=== PATIENT | female | born 1945 | race Caucasian/White ===

== ENCOUNTER 2016-12-27 08:44 | Outpatient (CLI) | payer OTHER | END 2016-12-27 18:30 | disposition home or self-care (01) | LOC: SMA 08:44 | PROVIDERS: ATTEND General Practice | DX: Z12.31 Encounter for screening mammogram for malignant neoplasm of breast (principal) | CPT/HCPCS: 77067; G0202 ==

== ENCOUNTER 2018-08-16 01:28 | Emergency (ER) | payer OTHER ==
[~2018-08-16] VITALS: Ht 157.5 cm; Wt 61.2 kg
[2018-08-16 01:38] VITALS: BP_SYST 152
--- NOTE | 2018-08-16 01:38 | NUR ---
Patient to ER bed 8 to gown for evaluation. Side rails up. Report given to Esmer ORTIZ and Shaina ORTIZ.
--- NOTE | 2018-08-16 01:45 | NUR ---
Patient is coming in with right sided pain which ocurred earlier tonight. Patient says she tried a hot shower however, it did not help. Patient denies n/v/d/f. Patient states she has had history of uti's. Patient explains that she does experience some burning when urinating. No other injuries/complaints noted. Will cont. to monitor.
--- NOTE | 2018-08-16 01:50 | NUR ---
ER Dr. Gómez at bedside examining patient.
[2018-08-16 02:23] LABS: BASOPHILS # (AUTO) 0.1 K/uL (0.0-0.2); BASOPHILS % (AUTO) 1.1 % (0.0-2.0); EOSINOPHILS # (AUTO) 0.1 K/uL (0.0-0.4); EOSINOPHILS % (AUTO) 1.3 % (0.0-4.0); HEMATOCRIT 42.8 % (36-48); HEMOGLOBIN 13.9 g/dL (12.0-16.0); LYMPHOCYTES # (AUTO) 2.1 K/uL (1.0-5.5); LYMPHOCYTES % (AUTO) 19.2 % (20.5-51.5); MEAN CORPUSCULAR HEMOGLOBIN 28 pg (27-31); MEAN CORPUSCULAR HGB CONC 32 % (32-36); MEAN CORPUSCULAR VOLUME 87 fL (79.0-98.0); MONOCYTES # (AUTO) 0.4 K/uL (0.0-1.0); NEUTROPHILS # (AUTO) 8.4 K/uL (1.8-7.7); NEUTROPHILS % (AUTO) 74.4 % (40.0-70.0); PLATELET COUNT (AUTO) 275 K/uL (130-430); RED BLOOD CELL COUNT(AUTO) 4.91 MIL/uL (4.2-6.2); RED CELL DISTRIBUTION WIDTH 13.1 % (9.0-15.0); WHITE BLOOD COUNT (AUTO) 11.1 K/uL (4.8-10.8)
[2018-08-16 02:35] LABS: BILIRUBIN,URINE NEGATIVE (NEGATIVE); BLOOD, URINE NEGATIVE (NEGATIVE); CLARITY/URINE CLEAR (CLEAR); COLOR,URINE YELLOW (YELLOW); GLUCOSE,URINE NEGATIVE (NEGATIVE); KETONES,URINE NEGATIVE (NEGATIVE); LEUKOCYTE ESTERASE ,URINE 1+ (NEGATIVE); NITRITE, URINE POSITIVE (NEGATIVE); PH,URINE 8.5 (5.0-8.0); PROTEIN URINE TRACE (NEGATIVE); UROBILINOGEN,URINE 0.2 (0.2-1.0)
--- NOTE | 2018-08-16 02:41 | NUR ---
Patient is calmly resting in ER bed, no signs of distress noted at this time.
[2018-08-16 02:48] LABS: BACTERIA,URINE MANY /HPF (None Seen); RBC,URINE 0-3 /HPF (0-3)
--- NOTE | 2018-08-16 03:35 | NUR ---
Patient resting quietly, no acute changes to patient's condition noted.
[2018-08-16] MEDS ORDERED: LEVOFLOXACIN 500 MG TABLET PO ONE (04:00)
[2018-08-16 04:21] VITALS: BP_SYST 144
--- NOTE | 2018-08-16 04:21 | NUR ---
Patient given written and verbal discharge instructions and verbalizes understanding. ER MD discussed with patient the results and treatment provided. Patient in stable condition. ID arm band removed. Rx of cipro and reglan given. Patient educated on pain management and to follow up with PMD. Pain Scale 1/10. Patient states pain is tolerable. Opportunity for questions provided and answered.
[2018-08-17] MEDS ORDERED: METO-290 PO (05:23)
[2018-08-17] MEDS ORDERED: SIMV10TA2 PO (05:23)
[2018-08-17] MEDS ORDERED: NOR10 PO (05:23)
[2018-08-17] MEDS ORDERED: APIX2.5T PO (05:23)
[2018-08-17] MEDS ORDERED: LEVO25TA2 PO (05:23)
[2018-08-17] MEDS ORDERED: PRO40 PO (05:23)
== END 2018-08-16 04:21 | disposition home or self-care (01) ==
LOC: SED 01:28
DX: N39.0 Urinary tract infection, site not specified (principal); R10.9 Unspecified abdominal pain; I10 Essential (primary) hypertension
CPT/HCPCS: 36415; 71045; 74021; 81000-TC; 85025; 87086; 87186-TC; 99285

== ENCOUNTER 2018-08-17 03:34 | Inpatient (IN) | payer OTHER ==
[~2018-08-17] VITALS: Ht 157.5 cm; Wt 64.0 kg
[2018-08-17] VITALS (7 sets, daily range): BP systolic 135–148
[2018-08-17] MEDS ORDERED: NACL 0.9% 1,000 ML IV ONE (03:43)
[2018-08-17] MEDS ORDERED: KETOROLAC TROMETHAMINE 30 MG VIAL IVP ONE (03:45)
[2018-08-17] MEDS ORDERED: ONDANSETRON HCL 4 MG/2 ML VIAL IVP ONE (04:00)
[2018-08-17 04:32] LABS: BASOPHILS # (AUTO) 0.1 K/uL (0.0-0.2); BASOPHILS % (AUTO) 1.1 % (0.0-2.0); EOSINOPHILS % (AUTO) 0.2 % (0.0-4.0); HEMATOCRIT 44.9 % (36-48); HEMOGLOBIN 14.8 g/dL (12.0-16.0); LYMPHOCYTES # (AUTO) 1.4 K/uL (1.0-5.5); LYMPHOCYTES % (AUTO) 11.6 % (20.5-51.5); MEAN CORPUSCULAR HEMOGLOBIN 29 pg (27-31); MEAN CORPUSCULAR HGB CONC 33 % (32-36); MEAN CORPUSCULAR VOLUME 87 fL (79.0-98.0); MONOCYTES # (AUTO) 0.3 K/uL (0.0-1.0); MONOCYTES % (AUTO) 2.8 % (1.7-9.3); NEUTROPHILS # (AUTO) 10.7 K/uL (1.8-7.7); NEUTROPHILS % (AUTO) 84.3 % (40.0-70.0); PLATELET COUNT (AUTO) 271 K/uL (130-430); RED BLOOD CELL COUNT(AUTO) 5.18 MIL/uL (4.2-6.2); RED CELL DISTRIBUTION WIDTH 12.7 % (9.0-15.0); WHITE BLOOD COUNT (AUTO) 12.5 K/uL (4.8-10.8)
[2018-08-17 04:33] LABS: ANION GAP 10 (5-15); CALCIUM 9.2 mg/dL (8.4-11.0); CHLORIDE 100 mmol/L (98-107); CREATININE 0.77 mg/dL (0.55-1.30); GLUCOSE 197 mg/dL (70-99); POTASSIUM 3.1 mmol/L (3.5-5.1); SODIUM SERUM 137 mmol/L (136-145); UREA NITROGEN, BLOOD 14 mg/dL (8-21)
[2018-08-17 04:38] LABS: ALANINE AMINOTRANSFERASE 17 U/L (12-78); ALBUMIN 3.5 g/dL (3.4-4.8); ASPARTATE AMINOTRANSFERASE 11 U/L (10-37)
[2018-08-17] MEDS ORDERED: metroNIDAZOLE 500 mg/NS 100 ML IV ONE (05:00)
[2018-08-17] MEDS ORDERED: POTASSIUM CHLORIDE 10 MEQ TAB.PRT.SR PO ONE (05:00)
[2018-08-17] MEDS ORDERED: KCL 40 mEq in D5W 1000 mL 1,000 ML IV ONE (05:00)
[2018-08-17] MEDS ORDERED: NOR10 PO (05:23)
[2018-08-17] MEDS ORDERED: APIX2.5T PO (05:23)
[2018-08-17] MEDS ORDERED: METO-290 PO (05:23)
[2018-08-17] MEDS ORDERED: LEVO25TA2 PO (05:23)
[2018-08-17] MEDS ORDERED: PRO40 PO (05:23)
[2018-08-17] MEDS ORDERED: SIMV10TA2 PO (05:23)
[2018-08-17] MEDS ORDERED: D5/0.45 NS 1,000 ML IV SCH (05:45)
[2018-08-17] MEDS ORDERED: MORPHINE 2 MG/ML INJ. SYRINGE IVP ONE (06:00)
[2018-08-17] MEDS: ACETAMINOPHEN 325 MG TABLET PO PRN ×2 (08:08→21:08)
[2018-08-17] MEDS: NACL 0.9% 1,000 ML IV SCH ×2 (08:09→17:33)
[2018-08-17] MEDS ORDERED: PANTOPRAZOLE SODIUM 40 MG/VIAL (PROTONIX) IVP SCH (09:00)
[2018-08-17] MEDS ORDERED: LACTULOSE 20 GM/30 ML UDC PO ONE (09:30)
[2018-08-17 10:10] LABS: INR 1.1 (0.8-1.2); PROTHROMBIN TIME 11.1 SECS (9.5-12.5)
[2018-08-17] MEDS: MORPHINE 2 MG/ML INJ. SYRINGE IVP PRN ×5 (10:18→23:15)
[2018-08-17 11:26] LABS: BILIRUBIN,URINE 1+ (NEGATIVE); BLOOD, URINE NEGATIVE (NEGATIVE); CLARITY/URINE CLEAR (CLEAR); COLOR,URINE YELLOW (YELLOW); GLUCOSE,URINE NEGATIVE (NEGATIVE); KETONES,URINE NEGATIVE (NEGATIVE); LEUKOCYTE ESTERASE ,URINE NEGATIVE (NEGATIVE); NITRITE, URINE NEGATIVE (NEGATIVE); PROTEIN URINE 2+ (NEGATIVE)
[2018-08-17 11:43] LABS: BACTERIA,URINE FEW /HPF (None Seen); RBC,URINE 0-3 /HPF (0-3); WBC,URINE 0-3 /HPF (0-3)
[2018-08-17 11:44] LABS: MUCUS,URINE 2+ /LPF (None Seen); YEAST,URINE None Seen /HPF (None Seen)
[2018-08-17] MEDS: AMPICILLIN SODIUM/SULBACTAM NA 3 GM in NS 100 ML IV SCH ×3 (12:00→23:11)
[2018-08-17] MEDS ORDERED: IPRATROPIUM/ALBUTEROL SULFATE 3 ML AMPUL.NEB (DUONEB) INH PRN (14:30)
[2018-08-17] MEDS ORDERED: IOHEXOL 350 mgI/mL, 150 ML INFUS..BTL IV ONE (16:18)
[2018-08-17] MEDS ORDERED: methylPREDNISolone SOD SUCC 40 MG/ML VIAL IVP ONE (17:30)
[2018-08-17] MEDS: IPRATROPIUM BROM 0.5 MG/2.5 ML VIAL.NEB (ATROVENT) INH SCH (19:12)
[2018-08-17] MEDS: ALBUTEROL SULFATE 0.083% 2.5 MG/3 ML VIAL.NEB INH SCH (19:12)
[2018-08-17] MEDS: methylPREDNISolone SOD SUCC 40 MG/ML VIAL IVP SCH (21:10)
[2018-08-18] MEDS: IPRATROPIUM BROM 0.5 MG/2.5 ML VIAL.NEB (ATROVENT) INH SCH ×4 (00:06→19:46)
[2018-08-18] MEDS: ALBUTEROL SULFATE 0.083% 2.5 MG/3 ML VIAL.NEB INH SCH ×4 (00:06→19:46)
[2018-08-18 00:22] VITALS: BP_SYST 122
[2018-08-18] MEDS: MORPHINE 2 MG/ML INJ. SYRINGE IVP PRN ×4 (04:30→23:31)
[2018-08-18] MEDS: NACL 0.9% 1,000 ML IV SCH (04:35)
[2018-08-18] MEDS: AMPICILLIN SODIUM/SULBACTAM NA 3 GM in NS 100 ML IV SCH (05:55)
[2018-08-18] MEDS: methylPREDNISolone SOD SUCC 40 MG/ML VIAL IVP SCH ×2 (05:55→21:44)
[2018-08-18] MEDS: LEVOTHYROXINE SODIUM 0.025 MG TABLET PO SCH (06:17)
[2018-08-18 07:45] LABS: ALANINE AMINOTRANSFERASE 19 U/L (12-78); ANION GAP 10 (5-15); ASPARTATE AMINOTRANSFERASE 11 U/L (10-37); CALCIUM 9.3 mg/dL (8.4-11.0); CHLORIDE 107 mmol/L (98-107); CREATININE 0.73 mg/dL (0.55-1.30); GLUCOSE 159 mg/dL (70-99); POTASSIUM 4.3 mmol/L (3.5-5.1); SODIUM SERUM 144 mmol/L (136-145); TOTAL BILIRUBIN 0.5 mg/dL (0.0-1.0); UREA NITROGEN, BLOOD 13 mg/dL (8-21)
[2018-08-18 07:58] LABS: BASOPHILS % (AUTO) 0.4 % (0.0-2.0); HEMATOCRIT 41.5 % (36-48); HEMOGLOBIN 13.4 g/dL (12.0-16.0); LYMPHOCYTES # (AUTO) 1.1 K/uL (1.0-5.5); LYMPHOCYTES % (AUTO) 9.6 % (20.5-51.5); MEAN CORPUSCULAR HEMOGLOBIN 29 pg (27-31); MEAN CORPUSCULAR HGB CONC 32 % (32-36); MEAN CORPUSCULAR VOLUME 88 fL (79.0-98.0); MONOCYTES # (AUTO) 0.2 K/uL (0.0-1.0); MONOCYTES % (AUTO) 1.6 % (1.7-9.3); NEUTROPHILS # (AUTO) 10.5 K/uL (1.8-7.7); NEUTROPHILS % (AUTO) 88.4 % (40.0-70.0); PLATELET COUNT (AUTO) 227 K/uL (130-430); RED CELL DISTRIBUTION WIDTH 13.3 % (9.0-15.0); WHITE BLOOD COUNT (AUTO) 11.8 K/uL (4.8-10.8)
[2018-08-18 08:40] VITALS: BP_SYST 114
[2018-08-18] MEDS: PANTOPRAZOLE SODIUM 40 MG TAB PO SCH (09:55)
[2018-08-18] MEDS: METOCLOPRAMIDE HCL 10 MG TABLET PO SCH (09:55)
[2018-08-18] MEDS: SIMVASTATIN 10 MG TABLET PO SCH (09:55)
[2018-08-18] MEDS: amLODIPine BESYLATE 10 MG TABLET PO SCH (09:56)
[2018-08-18 11:29] VITALS: BP_SYST 143
[2018-08-18] MEDS ORDERED: ENOXAPARIN SODIUM 40 MG/0.4 ML SYRINGE SUBCUT ONE (12:00)
[2018-08-18] MEDS: metroNIDAZOLE 500 mg/NS 100 ML IV SCH ×3 (12:27→21:46)
[2018-08-18] MEDS: D5/0.45 NS 1,000 ML IV SCH ×2 (12:31→23:36)
[2018-08-18] MEDS: PIPERACILLIN/TAZO 4.5GM/DEX-IS 100 ML IV SCH ×2 (15:29→21:44)
[2018-08-18 15:41] VITALS: BP_SYST 149
[2018-08-18 19:52] VITALS: BP_SYST 147
[2018-08-19] VITALS (11 sets, daily range): BP systolic 106–159
[2018-08-19] MEDS: ALBUTEROL SULFATE 0.083% 2.5 MG/3 ML VIAL.NEB INH SCH ×4 (00:50→19:36)
[2018-08-19] MEDS: IPRATROPIUM BROM 0.5 MG/2.5 ML VIAL.NEB (ATROVENT) INH SCH ×4 (00:50→19:36)
[2018-08-19] MEDS: metroNIDAZOLE 500 mg/NS 100 ML IV SCH ×2 (05:44→17:39)
[2018-08-19] MEDS: LEVOTHYROXINE SODIUM 0.025 MG TABLET PO SCH (06:34)
[2018-08-19] MEDS: PIPERACILLIN/TAZO 4.5GM/DEX-IS 100 ML IV SCH ×3 (06:35→21:08)
[2018-08-19 07:18] LABS: ANION GAP 10 (5-15); CALCIUM 8.9 mg/dL (8.4-11.0); CHLORIDE 105 mmol/L (98-107); CREATININE 0.66 mg/dL (0.55-1.30); GLUCOSE 214 mg/dL (70-99); SODIUM SERUM 141 mmol/L (136-145); UREA NITROGEN, BLOOD 11 mg/dL (8-21)
[2018-08-19 07:25] LABS: ALANINE AMINOTRANSFERASE 15 U/L (12-78); ALBUMIN 2.5 g/dL (3.4-4.8); ASPARTATE AMINOTRANSFERASE 9 U/L (10-37); TOTAL BILIRUBIN 0.3 mg/dL (0.0-1.0)
[2018-08-19 07:41] LABS: BASOPHILS % (AUTO) 0.3 % (0.0-2.0); HEMATOCRIT 34.5 % (36-48); HEMOGLOBIN 11.5 g/dL (12.0-16.0); LYMPHOCYTES # (AUTO) 0.7 K/uL (1.0-5.5); LYMPHOCYTES % (AUTO) 6.5 % (20.5-51.5); MEAN CORPUSCULAR HEMOGLOBIN 29 pg (27-31); MEAN CORPUSCULAR HGB CONC 33 % (32-36); MEAN CORPUSCULAR VOLUME 87 fL (79.0-98.0); MONOCYTES # (AUTO) 0.3 K/uL (0.0-1.0); MONOCYTES % (AUTO) 2.3 % (1.7-9.3); NEUTROPHILS % (AUTO) 90.9 % (40.0-70.0); PLATELET COUNT (AUTO) 242 K/uL (130-430); RED BLOOD CELL COUNT(AUTO) 3.96 MIL/uL (4.2-6.2); RED CELL DISTRIBUTION WIDTH 13.3 % (9.0-15.0)
[2018-08-19 08:00] LABS: POTASSIUM 2.9 mmol/L (3.5-5.1)
[2018-08-19] MEDS ORDERED: POTASSIUM CHLORIDE 40 MEQ in NS 250 ML IV ONE (09:00)
[2018-08-19] MEDS: METOCLOPRAMIDE HCL 10 MG TABLET PO SCH (09:42)
[2018-08-19] MEDS: ENOXAPARIN SODIUM 40 MG/0.4 ML SYRINGE SUBCUT SCH (09:42)
[2018-08-19] MEDS: methylPREDNISolone SOD SUCC 40 MG/ML VIAL IVP SCH ×2 (09:42→21:01)
[2018-08-19] MEDS: PANTOPRAZOLE SODIUM 40 MG TAB PO SCH (09:42)
[2018-08-19] MEDS: SIMVASTATIN 10 MG TABLET PO SCH (09:42)
[2018-08-19] MEDS: MORPHINE 2 MG/ML INJ. SYRINGE IVP PRN ×2 (09:43→22:50)
[2018-08-19] MEDS: amLODIPine BESYLATE 10 MG TABLET PO SCH (09:44)
[2018-08-19] MEDS: D5/0.45 NS 1,000 ML IV SCH ×2 (12:00→21:07)
[2018-08-19] MEDS: BRIMONIDINE TARTRATE 0.2% 5 mL EYE DROPS OP SCH (21:00)
[2018-08-19] MEDS: TIMOLOL MALEATE 0.5% OPHTHALMIC DROPS 5 ML OP SCH (21:01)
[2018-08-20] VITALS (25 sets, daily range): BP systolic 103–168
[2018-08-20] MEDS: metroNIDAZOLE 500 mg/NS 100 ML IV SCH ×4 (00:13→21:03)
[2018-08-20] MEDS: IPRATROPIUM BROM 0.5 MG/2.5 ML VIAL.NEB (ATROVENT) INH SCH ×4 (01:00→19:35)
[2018-08-20] MEDS: ALBUTEROL SULFATE 0.083% 2.5 MG/3 ML VIAL.NEB INH SCH ×4 (01:00→19:35)
[2018-08-20] MEDS: PIPERACILLIN/TAZO 4.5GM/DEX-IS 100 ML IV SCH ×3 (06:02→21:03)
[2018-08-20] MEDS: LEVOTHYROXINE SODIUM 0.025 MG TABLET PO SCH (06:02)
[2018-08-20 06:21] LABS: ANION GAP 9 (5-15); CALCIUM 9.1 mg/dL (8.4-11.0); CHLORIDE 101 mmol/L (98-107); GLUCOSE 160 mg/dL (70-99); SODIUM SERUM 140 mmol/L (136-145); UREA NITROGEN, BLOOD 12 mg/dL (8-21)
[2018-08-20 06:30] LABS: ALANINE AMINOTRANSFERASE 13 U/L (12-78); ALBUMIN 2.7 g/dL (3.4-4.8); TOTAL BILIRUBIN 0.4 mg/dL (0.0-1.0)
[2018-08-20 06:36] LABS: ASPARTATE AMINOTRANSFERASE 14 U/L (10-37); LIPASE 82 U/L (73-393)
[2018-08-20 06:47] LABS: BASOPHILS # (AUTO) 0.1 K/uL (0.0-0.2); BASOPHILS % (AUTO) 0.6 % (0.0-2.0); HEMATOCRIT 39.3 % (36-48); HEMOGLOBIN 12.4 g/dL (12.0-16.0); LYMPHOCYTES # (AUTO) 1.2 K/uL (1.0-5.5); LYMPHOCYTES % (AUTO) 10.5 % (20.5-51.5); MEAN CORPUSCULAR HEMOGLOBIN 28 pg (27-31); MEAN CORPUSCULAR HGB CONC 32 % (32-36); MEAN CORPUSCULAR VOLUME 87 fL (79.0-98.0); MONOCYTES # (AUTO) 0.4 K/uL (0.0-1.0); MONOCYTES % (AUTO) 3.2 % (1.7-9.3); NEUTROPHILS # (AUTO) 9.6 K/uL (1.8-7.7); NEUTROPHILS % (AUTO) 85.7 % (40.0-70.0); PLATELET COUNT (AUTO) 324 K/uL (130-430); RED BLOOD CELL COUNT(AUTO) 4.51 MIL/uL (4.2-6.2); RED CELL DISTRIBUTION WIDTH 13.6 % (9.0-15.0); WHITE BLOOD COUNT (AUTO) 11.3 K/uL (4.8-10.8)
[2018-08-20] MEDS: ENOXAPARIN SODIUM 40 MG/0.4 ML SYRINGE SUBCUT SCH (08:17)
[2018-08-20] MEDS: SIMVASTATIN 10 MG TABLET PO SCH (08:18)
[2018-08-20] MEDS: BRIMONIDINE TARTRATE 0.2% 5 mL EYE DROPS OP SCH ×2 (08:18→21:02)
[2018-08-20] MEDS: METOCLOPRAMIDE HCL 10 MG TABLET PO SCH (08:18)
[2018-08-20] MEDS: PANTOPRAZOLE SODIUM 40 MG TAB PO SCH (08:18)
[2018-08-20] MEDS: amLODIPine BESYLATE 10 MG TABLET PO SCH (08:18)
[2018-08-20] MEDS: TIMOLOL MALEATE 0.5% OPHTHALMIC DROPS 5 ML OP SCH ×2 (08:19→21:03)
[2018-08-20] MEDS: methylPREDNISolone SOD SUCC 40 MG/ML VIAL IVP SCH (08:24)
[2018-08-20] MEDS ORDERED: *PPN PER PHARMACY XX PRN (10:00)
[2018-08-20] MEDS ORDERED: DEXTROSE 50% JECT 50 ML DISP.SYRIN IVP PRN (10:00)
[2018-08-20] MEDS ORDERED: POTASSIUM CHLORIDE 40 MEQ, LIDOCAINE JECT 2% PF 100 MG 50 MG in NS 250 ML IV ONE (10:00)
[2018-08-20 10:35] LABS: PHOSPHORUS 2.8 mg/dL (2.7-4.5)
[2018-08-20] MEDS ORDERED: COMMUNICATION ORDER XX ONE (11:15)
[2018-08-20] MEDS: MORPHINE 2 MG/ML INJ. SYRINGE IVP PRN ×2 (12:22→23:15)
[2018-08-20] MEDS: D5/0.45 NS 1,000 ML IV SCH (14:07)
[2018-08-20] MEDS: POTASSIUM CHLORIDE IV SCH ×9 (17:31)
[2018-08-20] MEDS: [UNRECOGNIZED DRUG - OTHER] IV SCH ×9 (17:31)
[2018-08-20] MEDS: TPN PERIPHERAL IV SCH ×9 (17:31)
[2018-08-20] MEDS: SODIUM CHLORIDE IV SCH ×9 (17:31)
[2018-08-20] MEDS: FAT EMULSIONS 250 ML IV SCH (17:32)
[2018-08-20] MEDS ORDERED: TPN PERIPHERAL 0.0001 ML, SODIUM ACETATE 40 MEQ, POTASSIUM CHLORIDE 20 MEQ, K PHOS 12 M... IV SCH ×9 (18:00)
[2018-08-20] MEDS: INSULIN REGULAR, HUMAN 100 UNITS/ML, 10 ML VIAL (novoLIN R) SUBCUT PRN (23:14)
[2018-08-21] VITALS (24 sets, daily range): BP systolic 108–169
[2018-08-21] MEDS: IPRATROPIUM BROM 0.5 MG/2.5 ML VIAL.NEB (ATROVENT) INH SCH ×4 (00:49→20:01)
[2018-08-21] MEDS: ALBUTEROL SULFATE 0.083% 2.5 MG/3 ML VIAL.NEB INH SCH ×4 (00:49→20:01)
[2018-08-21 05:15] LABS: ANION GAP 5 (5-15); CALCIUM 8.9 mg/dL (8.4-11.0); CHLORIDE 104 mmol/L (98-107); CREATININE 0.76 mg/dL (0.55-1.30); GLUCOSE 138 mg/dL (70-99); PHOSPHORUS 3.4 mg/dL (2.7-4.5); POTASSIUM 3.7 mmol/L (3.5-5.1); SODIUM SERUM 138 mmol/L (136-145); UREA NITROGEN, BLOOD 20 mg/dL (8-21)
[2018-08-21 05:23] LABS: BASOPHILS # (AUTO) 0.2 K/uL (0.0-0.2); BASOPHILS % (AUTO) 1.6 % (0.0-2.0); EOSINOPHILS % (AUTO) 0.1 % (0.0-4.0); HEMATOCRIT 41.6 % (36-48); HEMOGLOBIN 13.1 g/dL (12.0-16.0); LYMPHOCYTES # (AUTO) 2.4 K/uL (1.0-5.5); LYMPHOCYTES % (AUTO) 21.8 % (20.5-51.5); MEAN CORPUSCULAR HEMOGLOBIN 28 pg (27-31); MEAN CORPUSCULAR HGB CONC 32 % (32-36); MEAN CORPUSCULAR VOLUME 88 fL (79.0-98.0); MONOCYTES # (AUTO) 0.8 K/uL (0.0-1.0); MONOCYTES % (AUTO) 7.3 % (1.7-9.3); NEUTROPHILS # (AUTO) 7.5 K/uL (1.8-7.7); NEUTROPHILS % (AUTO) 69.2 % (40.0-70.0); PLATELET COUNT (AUTO) 315 K/uL (130-430); RED BLOOD CELL COUNT(AUTO) 4.73 MIL/uL (4.2-6.2); RED CELL DISTRIBUTION WIDTH 13.6 % (9.0-15.0); WHITE BLOOD COUNT (AUTO) 10.9 K/uL (4.8-10.8)
[2018-08-21] MEDS: metroNIDAZOLE 500 mg/NS 100 ML IV SCH ×3 (05:52→22:00)
[2018-08-21] MEDS: PIPERACILLIN/TAZO 4.5GM/DEX-IS 100 ML IV SCH ×3 (05:53→22:00)
[2018-08-21] MEDS: LEVOTHYROXINE SODIUM 0.025 MG TABLET PO SCH (06:16)
[2018-08-21] MEDS: PANTOPRAZOLE SODIUM 40 MG TAB PO SCH (09:18)
[2018-08-21] MEDS: METOCLOPRAMIDE HCL 10 MG TABLET PO SCH (09:18)
[2018-08-21] MEDS: SIMVASTATIN 10 MG TABLET PO SCH (09:18)
[2018-08-21] MEDS: amLODIPine BESYLATE 10 MG TABLET PO SCH (09:18)
[2018-08-21] MEDS: BRIMONIDINE TARTRATE 0.2% 5 mL EYE DROPS OP SCH ×2 (09:19→21:00)
[2018-08-21] MEDS: TIMOLOL MALEATE 0.5% OPHTHALMIC DROPS 5 ML OP SCH ×2 (09:20→21:00)
[2018-08-21] MEDS: methylPREDNISolone SOD SUCC 40 MG/ML VIAL IVP SCH (09:21)
[2018-08-21] MEDS: ENOXAPARIN SODIUM 40 MG/0.4 ML SYRINGE SUBCUT SCH (09:23)
[2018-08-21] MEDS: MORPHINE 2 MG/ML INJ. SYRINGE IVP PRN (10:05)
[2018-08-21] MEDS: INSULIN REGULAR, HUMAN 100 UNITS/ML, 10 ML VIAL (novoLIN R) SUBCUT PRN ×2 (12:31→18:11)
[2018-08-21] MEDS: D5/0.45 NS 1,000 ML IV SCH (12:38)
[2018-08-21] MEDS: [UNRECOGNIZED DRUG - OTHER] IV SCH ×9 (18:02)
[2018-08-21] MEDS: SODIUM CHLORIDE IV SCH ×9 (18:02)
[2018-08-21] MEDS: TPN PERIPHERAL IV SCH ×9 (18:02)
[2018-08-21] MEDS: POTASSIUM CHLORIDE IV SCH ×9 (18:02)
[2018-08-21] MEDS: FAT EMULSIONS 250 ML IV SCH (18:07)
[2018-08-22] VITALS (24 sets, daily range): BP systolic 108–157
[2018-08-22] MEDS: INSULIN REGULAR, HUMAN 100 UNITS/ML, 10 ML VIAL (novoLIN R) SUBCUT PRN (00:13)
[2018-08-22] MEDS: IPRATROPIUM BROM 0.5 MG/2.5 ML VIAL.NEB (ATROVENT) INH SCH ×4 (01:40→20:09)
[2018-08-22] MEDS: ALBUTEROL SULFATE 0.083% 2.5 MG/3 ML VIAL.NEB INH SCH ×4 (01:40→20:09)
[2018-08-22] MEDS: PIPERACILLIN/TAZO 4.5GM/DEX-IS 100 ML IV SCH (05:34)
[2018-08-22] MEDS: metroNIDAZOLE 500 mg/NS 100 ML IV SCH ×3 (05:34→21:43)
[2018-08-22] MEDS: LEVOTHYROXINE SODIUM 0.025 MG TABLET PO SCH (06:34)
[2018-08-22 06:49] LABS: ANION GAP 5 (5-15); CALCIUM 8.7 mg/dL (8.4-11.0); CHLORIDE 102 mmol/L (98-107); CREATININE 0.67 mg/dL (0.55-1.30); GLUCOSE 135 mg/dL (70-99); PHOSPHORUS 3.2 mg/dL (2.7-4.5); POTASSIUM 3.4 mmol/L (3.5-5.1); SODIUM SERUM 137 mmol/L (136-145); UREA NITROGEN, BLOOD 25 mg/dL (8-21)
[2018-08-22] MEDS: SIMVASTATIN 10 MG TABLET PO SCH (09:44)
[2018-08-22] MEDS: BRIMONIDINE TARTRATE 0.2% 5 mL EYE DROPS OP SCH ×2 (09:44→21:42)
[2018-08-22] MEDS: PANTOPRAZOLE SODIUM 40 MG TAB PO SCH (09:44)
[2018-08-22] MEDS: METOCLOPRAMIDE HCL 10 MG TABLET PO SCH (09:44)
[2018-08-22] MEDS: TIMOLOL MALEATE 0.5% OPHTHALMIC DROPS 5 ML OP SCH ×2 (09:44→21:42)
[2018-08-22] MEDS: ENOXAPARIN SODIUM 40 MG/0.4 ML SYRINGE SUBCUT SCH (09:45)
[2018-08-22] MEDS: methylPREDNISolone SOD SUCC 40 MG/ML VIAL IVP SCH (09:45)
[2018-08-22] MEDS: MORPHINE 2 MG/ML INJ. SYRINGE IVP PRN (09:46)
[2018-08-22] MEDS: amLODIPine BESYLATE 10 MG TABLET PO SCH (09:56)
[2018-08-22] MEDS: LOPERAMIDE HCL 2 MG CAPSULE PO PRN (10:40)
[2018-08-22] MEDS ORDERED: metroNIDAZOLE 500 MG TABLET PO ONE (10:45)
[2018-08-22] MEDS: cefTRIAXone 1 GM IVPB PREMIX 50 ML IV SCH (12:14)
[2018-08-22] MEDS ORDERED: 0.45% NACL 1,000 ML IV SCH (14:30)
[2018-08-22] MEDS: D5/0.45 NS 1,000 ML IV SCH (14:41)
[2018-08-22] MEDS ORDERED: D5/0.45 NS 1,000 ML IV SCH (14:45)
[2018-08-22] MEDS ORDERED: TPN PERIPHERAL IV SCH ×9 (18:00)
[2018-08-22] MEDS ORDERED: [UNRECOGNIZED DRUG - OTHER] IV SCH ×9 (18:00)
[2018-08-22] MEDS ORDERED: SODIUM CHLORIDE IV SCH ×9 (18:00)
[2018-08-22] MEDS ORDERED: POTASSIUM CHLORIDE IV SCH ×9 (18:00)
[2018-08-22] MEDS ORDERED: NOREPINEPHRINE 4 MG/4 ML VIAL IV ONE (19:44)
[2018-08-22] MEDS ORDERED: metroNIDAZOLE 500 MG TABLET PO SCH (22:00)
[2018-08-23] VITALS (13 sets, daily range): BP systolic 102–150
[2018-08-23] MEDS: IPRATROPIUM BROM 0.5 MG/2.5 ML VIAL.NEB (ATROVENT) INH SCH ×4 (00:46→19:51)
[2018-08-23] MEDS: ALBUTEROL SULFATE 0.083% 2.5 MG/3 ML VIAL.NEB INH SCH ×4 (00:46→19:51)
[2018-08-23] MEDS: MORPHINE 2 MG/ML INJ. SYRINGE IVP PRN ×2 (03:11→21:21)
[2018-08-23] MEDS: LOPERAMIDE HCL 2 MG CAPSULE PO PRN ×2 (03:21→17:14)
[2018-08-23 05:44] LABS: ALANINE AMINOTRANSFERASE 17 U/L (12-78); ALBUMIN 2.6 g/dL (3.4-4.8); ANION GAP 5 (5-15); ASPARTATE AMINOTRANSFERASE 9 U/L (10-37); CALCIUM 8.8 mg/dL (8.4-11.0); CHLORIDE 103 mmol/L (98-107); CREATININE 0.59 mg/dL (0.55-1.30); GLUCOSE 118 mg/dL (70-99); PHOSPHORUS 3.3 mg/dL (2.7-4.5); POTASSIUM 4.2 mmol/L (3.5-5.1); SODIUM SERUM 137 mmol/L (136-145); TOTAL BILIRUBIN 0.3 mg/dL (0.0-1.0); TRIGLYCERIDES 95 mg/dL (30-150); UREA NITROGEN, BLOOD 19 mg/dL (8-21)
[2018-08-23] MEDS: LEVOTHYROXINE SODIUM 0.025 MG TABLET PO SCH (06:15)
[2018-08-23] MEDS: metroNIDAZOLE 500 mg/NS 100 ML IV SCH ×3 (06:15→21:14)
[2018-08-23] MEDS: SIMVASTATIN 10 MG TABLET PO SCH (08:40)
[2018-08-23] MEDS: METOCLOPRAMIDE HCL 10 MG TABLET PO SCH (08:40)
[2018-08-23] MEDS: ENOXAPARIN SODIUM 40 MG/0.4 ML SYRINGE SUBCUT SCH (08:40)
[2018-08-23] MEDS: PANTOPRAZOLE SODIUM 40 MG TAB PO SCH (08:41)
[2018-08-23] MEDS: amLODIPine BESYLATE 10 MG TABLET PO SCH (08:41)
[2018-08-23] MEDS: BRIMONIDINE TARTRATE 0.2% 5 mL EYE DROPS OP SCH ×2 (08:42→21:13)
[2018-08-23] MEDS: TIMOLOL MALEATE 0.5% OPHTHALMIC DROPS 5 ML OP SCH ×2 (08:42→21:12)
[2018-08-23] MEDS: methylPREDNISolone SOD SUCC 40 MG/ML VIAL IVP SCH (08:43)
[2018-08-23] MEDS: cefTRIAXone 1 GM IVPB PREMIX 50 ML IV SCH (12:03)
[2018-08-24] MEDS: ALBUTEROL SULFATE 0.083% 2.5 MG/3 ML VIAL.NEB INH SCH ×4 (01:30→19:55)
[2018-08-24] MEDS: IPRATROPIUM BROM 0.5 MG/2.5 ML VIAL.NEB (ATROVENT) INH SCH ×4 (01:30→19:55)
[2018-08-24] MEDS: LEVOTHYROXINE SODIUM 0.025 MG TABLET PO SCH (06:02)
[2018-08-24] MEDS: LOPERAMIDE HCL 2 MG CAPSULE PO PRN (06:02)
[2018-08-24] MEDS: metroNIDAZOLE 500 mg/NS 100 ML IV SCH ×3 (06:02→22:11)
[2018-08-24 07:05] LABS: BASOPHILS % (AUTO) 0.1 % (0.0-2.0); EOSINOPHILS # (AUTO) 0.1 K/uL (0.0-0.4); EOSINOPHILS % (AUTO) 0.6 % (0.0-4.0); HEMATOCRIT 39.5 % (36-48); LYMPHOCYTES # (AUTO) 2.8 K/uL (1.0-5.5); LYMPHOCYTES % (AUTO) 21.6 % (20.5-51.5); MEAN CORPUSCULAR HEMOGLOBIN 28 pg (27-31); MEAN CORPUSCULAR HGB CONC 33 % (32-36); MEAN CORPUSCULAR VOLUME 86 fL (79.0-98.0); MONOCYTES # (AUTO) 0.7 K/uL (0.0-1.0); MONOCYTES % (AUTO) 5.1 % (1.7-9.3); NEUTROPHILS # (AUTO) 9.2 K/uL (1.8-7.7); NEUTROPHILS % (AUTO) 72.6 % (40.0-70.0); PLATELET COUNT (AUTO) 313 K/uL (130-430); RED BLOOD CELL COUNT(AUTO) 4.59 MIL/uL (4.2-6.2); RED CELL DISTRIBUTION WIDTH 13.9 % (9.0-15.0); WHITE BLOOD COUNT (AUTO) 12.8 K/uL (4.8-10.8)
[2018-08-24 07:29] LABS: ALANINE AMINOTRANSFERASE 17 U/L (12-78); ALBUMIN 2.6 g/dL (3.4-4.8); ANION GAP 4 (5-15); ASPARTATE AMINOTRANSFERASE 6 U/L (10-37); CALCIUM 9.1 mg/dL (8.4-11.0); CHLORIDE 102 mmol/L (98-107); CREATININE 0.61 mg/dL (0.55-1.30); GLUCOSE 98 mg/dL (70-99); POTASSIUM 3.9 mmol/L (3.5-5.1); SODIUM SERUM 137 mmol/L (136-145); TOTAL BILIRUBIN 0.3 mg/dL (0.0-1.0); UREA NITROGEN, BLOOD 19 mg/dL (8-21)
[2018-08-24 07:45] VITALS: BP_SYST 146
[2018-08-24] MEDS: SIMVASTATIN 10 MG TABLET PO SCH (08:40)
[2018-08-24] MEDS: PANTOPRAZOLE SODIUM 40 MG TAB PO SCH (08:41)
[2018-08-24] MEDS: METOCLOPRAMIDE HCL 10 MG TABLET PO SCH (08:42)
[2018-08-24] MEDS: ENOXAPARIN SODIUM 40 MG/0.4 ML SYRINGE SUBCUT SCH (08:42)
[2018-08-24] MEDS: amLODIPine BESYLATE 10 MG TABLET PO SCH (08:42)
[2018-08-24] MEDS: BRIMONIDINE TARTRATE 0.2% 5 mL EYE DROPS OP SCH ×2 (08:44→22:07)
[2018-08-24] MEDS: TIMOLOL MALEATE 0.5% OPHTHALMIC DROPS 5 ML OP SCH ×2 (08:44→22:07)
[2018-08-24] MEDS ORDERED: methylPREDNISolone SOD SUCC 40 MG/ML VIAL IVP SCH (09:00)
[2018-08-24 11:32] VITALS: BP_SYST 122
[2018-08-24] MEDS: cefTRIAXone 1 GM IVPB PREMIX 50 ML IV SCH (12:06)
[2018-08-24 15:13] VITALS: BP_SYST 128
[2018-08-24 19:00] VITALS: BP_SYST 117
[2018-08-24 20:00] VITALS: BP_SYST 117
[2018-08-24] MEDS ORDERED: TEMAZEPAM 15 MG CAPSULE PO ONE (21:15)
[2018-08-24] MEDS: LACTOBACILLUS RHAMNOSUS GG 1 CAP CAPSULE PO SCH (22:08)
[2018-08-25] VITALS: BP_SYST 110
[2018-08-25] MEDS: ALBUTEROL SULFATE 0.083% 2.5 MG/3 ML VIAL.NEB INH SCH ×3 (00:34→13:23)
[2018-08-25] MEDS: IPRATROPIUM BROM 0.5 MG/2.5 ML VIAL.NEB (ATROVENT) INH SCH ×3 (00:34→13:23)
[2018-08-25] MEDS: metroNIDAZOLE 500 mg/NS 100 ML IV SCH (06:25)
[2018-08-25] MEDS: LEVOTHYROXINE SODIUM 0.025 MG TABLET PO SCH (06:36)
[2018-08-25 07:42] LABS: EOSINOPHILS # (AUTO) 0.1 K/uL (0.0-0.4); EOSINOPHILS % (AUTO) 0.7 % (0.0-4.0); HEMATOCRIT 40.3 % (36-48); LYMPHOCYTES # (AUTO) 3.1 K/uL (1.0-5.5); LYMPHOCYTES % (AUTO) 28.3 % (20.5-51.5); MEAN CORPUSCULAR HEMOGLOBIN 28 pg (27-31); MEAN CORPUSCULAR HGB CONC 32 % (32-36); MEAN CORPUSCULAR VOLUME 85 fL (79.0-98.0); MONOCYTES # (AUTO) 0.6 K/uL (0.0-1.0); MONOCYTES % (AUTO) 5.6 % (1.7-9.3); NEUTROPHILS # (AUTO) 7.1 K/uL (1.8-7.7); NEUTROPHILS % (AUTO) 65.4 % (40.0-70.0); PLATELET COUNT (AUTO) 329 K/uL (130-430); RED BLOOD CELL COUNT(AUTO) 4.73 MIL/uL (4.2-6.2); RED CELL DISTRIBUTION WIDTH 13.9 % (9.0-15.0); WHITE BLOOD COUNT (AUTO) 10.9 K/uL (4.8-10.8)
[2018-08-25 08:03] LABS: ALANINE AMINOTRANSFERASE 17 U/L (12-78); ALBUMIN 2.7 g/dL (3.4-4.8); ANION GAP 5 (5-15); ASPARTATE AMINOTRANSFERASE 8 U/L (10-37); CHLORIDE 102 mmol/L (98-107); CREATININE 0.62 mg/dL (0.55-1.30); GLUCOSE 87 mg/dL (70-99); POTASSIUM 3.4 mmol/L (3.5-5.1); SODIUM SERUM 137 mmol/L (136-145); TOTAL BILIRUBIN 0.4 mg/dL (0.0-1.0); UREA NITROGEN, BLOOD 19 mg/dL (8-21)
[2018-08-25] MEDS: BRIMONIDINE TARTRATE 0.2% 5 mL EYE DROPS OP SCH (09:33)
[2018-08-25] MEDS: TIMOLOL MALEATE 0.5% OPHTHALMIC DROPS 5 ML OP SCH (09:33)
[2018-08-25] MEDS: PANTOPRAZOLE SODIUM 40 MG TAB PO SCH (09:34)
[2018-08-25] MEDS: METOCLOPRAMIDE HCL 10 MG TABLET PO SCH (09:34)
[2018-08-25] MEDS: SIMVASTATIN 10 MG TABLET PO SCH (09:34)
[2018-08-25] MEDS: LACTOBACILLUS RHAMNOSUS GG 1 CAP CAPSULE PO SCH (09:34)
[2018-08-25] MEDS: amLODIPine BESYLATE 10 MG TABLET PO SCH (09:35)
[2018-08-25] MEDS: ENOXAPARIN SODIUM 40 MG/0.4 ML SYRINGE SUBCUT SCH (09:37)
[2018-08-25] MEDS: cefTRIAXone 1 GM IVPB PREMIX 50 ML IV SCH (11:28)
[2018-08-25 11:40] VITALS: BP_SYST 126
[2018-08-25] MEDS ORDERED: METH2TAB PO (12:41)
[2018-08-25] MEDS ORDERED: ALBU2.5V7 INH (12:42)
[2018-08-25 13:01] VITALS: BP_SYST 126
[2018-08-25 15:38] VITALS: BP_SYST 138
== END 2018-08-25 16:10 | disposition home or self-care (01) | DRG 393 ==
LOC: SED 03:34 → SMU 05:31 → SIC 08-19 17:00 → STU 08-23 09:41 → SMU 08-24 09:05
PROVIDERS: ADMIT Internal Medicine; ATTEND Internal Medicine
PROC: 02H633Z Insertion of Infusion Device into Right Atrium, Percutaneous Approach (ICD-10-PCS; principal; 2018-08-22)
PROC: B244ZZZ Ultrasonography of Right Heart (ICD-10-PCS; 2018-08-22)
DX: K35.80 Unspecified acute appendicitis (principal); J18.9 Pneumonia, unspecified organism; J96.01 Acute respiratory failure with hypoxia; I42.9 Cardiomyopathy, unspecified; J44.0 Chronic obstructive pulmonary disease with (acute) lower respiratory infection; J44.1 Chronic obstructive pulmonary disease with (acute) exacerbation; N39.0 Urinary tract infection, site not specified; E03.9 Hypothyroidism, unspecified; E66.9 Obesity, unspecified; I10 Essential (primary) hypertension; D64.9 Anemia, unspecified; E78.5 Hyperlipidemia, unspecified; F17.210 Nicotine dependence, cigarettes, uncomplicated; I25.10 Atherosclerotic heart disease of native coronary artery without angina pectoris; K80.20 Calculus of gallbladder without cholecystitis without obstruction; I48.91 Unspecified atrial fibrillation; K21.9 Gastro-esophageal reflux disease without esophagitis; K59.00 Constipation, unspecified; Z79.01 Long term (current) use of anticoagulants; Z79.02 Long term (current) use of antithrombotics/antiplatelets; Z86.718 Personal history of other venous thrombosis and embolism; Z90.710 Acquired absence of both cervix and uterus; Z68.25 Body mass index [BMI] 25.0-25.9, adult; Z79.899 Other long term (current) drug therapy
CPT/HCPCS: 36415; 36600; 71045; 71275; 76700-TC; 78226; 80048; 80053; 81000-TC; 82803-TC; 82962; 83690-TC; 83735-TC; 84100-TC; 84478-TC; 85025; 85610-TC; 87040-TC; 87081; 87230-TC; 93005; 93306; 93971; 94640; 94760; 96361; 96374; 96375; 99285; A9537; C1751; C9113; J0295; J0696; J1030; J1650; J1815; J1885; J2270; J2405; J2543; J3475; J3480; J3490; J7030; J7050; J7131; J7613; J7620; J8597; Q9967

== ENCOUNTER 2018-09-03 01:53 | Emergency (ER) | payer OTHER ==
[~2018-09-03] VITALS: Ht 157.5 cm; Wt 61.2 kg
[2018-09-03 01:53] VITALS: BP_SYST 158
[~2018-09-03 01:53] MED LIST: ALBU2.5V7 INH; APIX2.5T PO; LEVO25TA2 PO; METH2TAB PO; METO-290 PO; NOR10 PO; PRO40 PO; SIMV10TA2 PO
[2018-09-03] MEDS ORDERED: KETOROLAC TROMETHAMINE 60 MG/2 ML VIAL IM ONE (02:30)
[2018-09-03 02:37] LABS: BILIRUBIN,URINE NEGATIVE (NEGATIVE); BLOOD, URINE NEGATIVE (NEGATIVE); COLOR,URINE YELLOW (YELLOW); GLUCOSE,URINE NEGATIVE (NEGATIVE); KETONES,URINE NEGATIVE (NEGATIVE); LEUKOCYTE ESTERASE ,URINE 2+ (NEGATIVE); NITRITE, URINE NEGATIVE (NEGATIVE); PROTEIN URINE NEGATIVE (NEGATIVE); UROBILINOGEN,URINE 0.2 (0.2-1.0)
[2018-09-03 02:44] LABS: CLARITY/URINE SLIGHTLY HAZY (CLEAR)
[2018-09-03 02:45] LABS: BACTERIA,URINE FEW /HPF (None Seen); RBC,URINE 0-3 /HPF (0-3)
[2018-09-03] MEDS ORDERED: KETOROLAC TROMETHAMINE 15 MG VIAL IVP ONE (03:00)
[2018-09-03] MEDS ORDERED: cefTRIAXone 1 GM in D5W 50 ML IV ONE (03:45)
[2018-09-03 03:56] LABS: BASOPHILS % (AUTO) 0.3 % (0.0-2.0); EOSINOPHILS # (AUTO) 0.1 K/uL (0.0-0.4); EOSINOPHILS % (AUTO) 0.4 % (0.0-4.0); HEMATOCRIT 39.8 % (36-48); HEMOGLOBIN 13.3 g/dL (12.0-16.0); LYMPHOCYTES # (AUTO) 1.5 K/uL (1.0-5.5); LYMPHOCYTES % (AUTO) 10.1 % (20.5-51.5); MEAN CORPUSCULAR HEMOGLOBIN 28 pg (27-31); MEAN CORPUSCULAR HGB CONC 34 % (32-36); MEAN CORPUSCULAR VOLUME 85 fL (79.0-98.0); MONOCYTES # (AUTO) 0.6 K/uL (0.0-1.0); MONOCYTES % (AUTO) 3.7 % (1.7-9.3); NEUTROPHILS % (AUTO) 85.5 % (40.0-70.0); PLATELET COUNT (AUTO) 333 K/uL (130-430); RED CELL DISTRIBUTION WIDTH 13.9 % (9.0-15.0); WHITE BLOOD COUNT (AUTO) 15.2 K/uL (4.8-10.8)
[2018-09-03] MEDS ORDERED: cefTRIAXone 1 GM VIAL ONE (03:56)
[2018-09-03 03:58] LABS: ANION GAP 5 (5-15); CALCIUM 8.9 mg/dL (8.4-11.0); CHLORIDE 100 mmol/L (98-107); GLUCOSE 121 mg/dL (70-99); POTASSIUM 3.6 mmol/L (3.5-5.1); SODIUM SERUM 134 mmol/L (136-145); UREA NITROGEN, BLOOD 14 mg/dL (8-21)
[2018-09-03 04:03] LABS: ALANINE AMINOTRANSFERASE 22 U/L (12-78); ALBUMIN 2.8 g/dL (3.4-4.8); ASPARTATE AMINOTRANSFERASE 8 U/L (10-37); LIPASE 128 U/L (73-393); TOTAL BILIRUBIN 0.7 mg/dL (0.0-1.0)
[2018-09-03 04:54] VITALS: BP_SYST 130
== END 2018-09-03 04:54 | disposition home or self-care (01) ==
LOC: SED 01:53
DX: N39.0 Urinary tract infection, site not specified (principal); R10.9 Unspecified abdominal pain; K21.9 Gastro-esophageal reflux disease without esophagitis; J45.909 Unspecified asthma, uncomplicated; I10 Essential (primary) hypertension; Z79.899 Other long term (current) drug therapy
CPT/HCPCS: 36415; 71045; 80053; 81000; 83605; 83690; 85025; 87040; 87086; 96365; 96375; 99285; J0696; J1885

== ENCOUNTER 2019-02-23 10:27 | Outpatient (CLI) | payer OTHER | END 2019-02-24 21:25 | disposition home or self-care (01) | LOC: SMA 10:27 | PROVIDERS: ATTEND Specialist | DX: Z12.31 Encounter for screening mammogram for malignant neoplasm of breast (principal) | CPT/HCPCS: 77067 ==

== ENCOUNTER 2021-03-09 09:58 | Outpatient (CLI) | payer OTHER | END 2021-03-09 14:00 | disposition home or self-care (01) | LOC: SMA 09:58 | PROVIDERS: ATTEND Specialist | DX: Z12.31 Encounter for screening mammogram for malignant neoplasm of breast (principal) | CPT/HCPCS: 77067 ==

== ENCOUNTER 2023-07-24 18:08 | Inpatient (IN) | payer OTHER, MEDICAID ==
[~2023-07-24] VITALS: Ht 157.5 cm; Wt 63.5 kg
[~2023-07-24 18:08] MED LIST changes: +SIMV-341 PO; -SIMV10TA2 PO
[2023-07-24 18:15] VITALS: BP_SYST 155; PULSE 75; RESP 20; TEMP 97.9; O2SAT 95
[2023-07-24 18:57] LABS: ANION GAP 11 (5-15); CALCIUM 8.7 mg/dL (8.4-11.0); CARBON DIOXIDE 23 mmol/L (23-29); CHLORIDE 99 mmol/L (98-107); GLUCOSE 119 mg/dL (74-106); POTASSIUM 3.9 mmol/L (3.5-5.1); SODIUM SERUM 133 mmol/L (136-145); UREA NITROGEN, BLOOD 17 mg/dL (8-21)
[2023-07-24 19:05] LABS: ALANINE AMINOTRANSFERASE 15 U/L (12-78); ALBUMIN 3.3 g/dL (3.4-4.8); ASPARTATE AMINOTRANSFERASE 14 U/L (10-37); TOTAL BILIRUBIN 0.6 mg/dL (0.0-1.0); TOTAL PROTEIN, SERUM 7.3 g/dL (6.4-8.3)
[2023-07-24 19:07] LABS: BASOPHILS % (AUTO) 0.3 % (0.0-2.0); EOSINOPHILS # (AUTO) 0.1 K/uL (0.0-0.4); EOSINOPHILS % (AUTO) 1.1 % (0.0-4.0); HEMATOCRIT 37.1 % (36-48); HEMOGLOBIN 12.4 g/dL (12.0-16.0); LYMPHOCYTES # (AUTO) 2.2 K/uL (1.0-5.5); LYMPHOCYTES % (AUTO) 23.5 % (20.5-51.5); MEAN CORPUSCULAR HEMOGLOBIN 29 pg (27-31); MEAN CORPUSCULAR HGB CONC 33 % (32-36); MEAN CORPUSCULAR VOLUME 86 fL (79.0-98.0); MONOCYTES # (AUTO) 0.7 K/uL (0.0-1.0); MONOCYTES % (AUTO) 7.9 % (1.7-9.3); NEUTROPHILS # (AUTO) 6.3 K/uL (1.8-7.7); NEUTROPHILS % (AUTO) 67.2 % (40.0-70.0); PLATELET COUNT (AUTO) 281 K/uL (130-430); RED BLOOD CELL COUNT(AUTO) 4.31 MIL/uL (4.2-6.2); RED CELL DISTRIBUTION WIDTH 14.2 % (9.0-15.0); WHITE BLOOD COUNT (AUTO) 9.3 K/uL (4.8-10.8)
[2023-07-24] MEDS ORDERED: ALBUTEROL SULFATE 0.083% 2.5 MG/3 ML VIAL.NEB INH ONE (19:30)
[2023-07-24] MEDS ORDERED: IPRATROPIUM BROM 0.5 MG/2.5 ML VIAL.NEB (ATROVENT) INH ONE (19:30)
[2023-07-24] MEDS ORDERED: iohexoL 350 mgI/mL, 100 ML INFUS..BTL IV ONE (20:56)
[2023-07-24] MEDS ORDERED: SIMV-343 PO (21:34)
[2023-07-24] MEDS ORDERED: NOR10 PO (21:34)
[2023-07-24] MEDS ORDERED: LEVO25TA2 PO (21:34)
[2023-07-24] MEDS ORDERED: LOSA-413 PO (21:34)
[2023-07-24] MEDS ORDERED: PRO40 PO (21:34)
[2023-07-24 22:37] VITALS: BP_SYST 150; PULSE 75; RESP 18; TEMP 97.9; O2SAT 93
[2023-07-24] MEDS ORDERED: ONDANSETRON HCL 4 MG/2 ML VIAL IVP PRN (23:15)
[2023-07-24] MEDS ORDERED: LORazepam 2 MG/ML VIAL IVP PRN (23:15)
[2023-07-24] MEDS ORDERED: NALOXONE HCL 0.4 MG/ML AMP (NARCAN) IVP PRN ×2 (23:15)
[2023-07-24] MEDS ORDERED: HYDROcodone/ACETAMIN 5-325 MG TAB (NORCO/ VICODIN) PO PRN (23:15)
[2023-07-24] MEDS ORDERED: HYDROcodone/ACETAMIN 10-325 MG TAB PO PRN (23:15)
[2023-07-24] MEDS ORDERED: ACETAMINOPHEN 325 MG TABLET PO PRN (23:15)
[2023-07-25] VITALS (14 sets, daily range): BP systolic 112–150; PULSE 75–96; RESP 18–20; TEMP 96.8–98.6; O2SAT 91–96
[2023-07-25] MEDS: ALBUTEROL SULFATE 0.083% 2.5 MG/3 ML VIAL.NEB INH SCH ×6 (03:18→23:14)
[2023-07-25] MEDS: IPRATROPIUM BROM 0.5 MG/2.5 ML VIAL.NEB (ATROVENT) INH SCH ×6 (03:18→23:14)
[2023-07-25] MEDS: NORMAL SALINE 5 ML DISP.SYRIN IVF SCH ×3 (06:21→20:29)
[2023-07-25] MEDS: LEVOTHYROXINE SODIUM 0.025 MG TABLET PO SCH (06:47)
[2023-07-25 06:57] LABS: BASOPHILS % (AUTO) 0.4 % (0.0-2.0); EOSINOPHILS # (AUTO) 0.1 K/uL (0.0-0.4); EOSINOPHILS % (AUTO) 0.8 % (0.0-4.0); HEMATOCRIT 37.4 % (36-48); HEMOGLOBIN 12.4 g/dL (12.0-16.0); LYMPHOCYTES # (AUTO) 1.8 K/uL (1.0-5.5); LYMPHOCYTES % (AUTO) 19.6 % (20.5-51.5); MEAN CORPUSCULAR HEMOGLOBIN 29 pg (27-31); MEAN CORPUSCULAR HGB CONC 33 % (32-36); MEAN CORPUSCULAR VOLUME 86 fL (79.0-98.0); MONOCYTES # (AUTO) 0.8 K/uL (0.0-1.0); MONOCYTES % (AUTO) 8.9 % (1.7-9.3); NEUTROPHILS # (AUTO) 6.6 K/uL (1.8-7.7); NEUTROPHILS % (AUTO) 70.3 % (40.0-70.0); PLATELET COUNT (AUTO) 308 K/uL (130-430); RED BLOOD CELL COUNT(AUTO) 4.34 MIL/uL (4.2-6.2); RED CELL DISTRIBUTION WIDTH 14.3 % (9.0-15.0); WHITE BLOOD COUNT (AUTO) 9.4 K/uL (4.8-10.8)
[2023-07-25] MEDS: amLODIPine BESYLATE 10 MG TABLET PO SCH (09:19)
[2023-07-25] MEDS: PANTOPRAZOLE SODIUM 40 MG TAB PO SCH (09:19)
[2023-07-25] MEDS: METOCLOPRAMIDE HCL 10 MG TABLET PO SCH (09:19)
[2023-07-25] MEDS: LOSARTAN POTASSIUM 50 MG TABLET (COZAAR) PO SCH (09:19)
[2023-07-25] MEDS: APIXABAN 2.5 MG TABLET PO SCH (09:22)
[2023-07-25] MEDS: METHYLPREDNISOLONE SOD SUCC 40 MG/ML VIAL IVP SCH ×2 (09:33→20:25)
[2023-07-25] MEDS: SIMVASTATIN 20 MG TABLET PO SCH (20:25)
[2023-07-26] VITALS (8 sets, daily range): BP systolic 123–132; PULSE 78–98; RESP 18–19; TEMP 97.6–98.2; O2SAT 93–98
[2023-07-26] MEDS: IPRATROPIUM BROM 0.5 MG/2.5 ML VIAL.NEB (ATROVENT) INH SCH ×6 (03:00→23:31)
[2023-07-26] MEDS: ALBUTEROL SULFATE 0.083% 2.5 MG/3 ML VIAL.NEB INH SCH ×6 (03:00→23:32)
[2023-07-26 06:55] LABS: BASOPHILS % (AUTO) 0.5 % (0.0-2.0); HEMATOCRIT 36.1 % (36-48); HEMOGLOBIN 11.9 g/dL (12.0-16.0); LYMPHOCYTES # (AUTO) 1.4 K/uL (1.0-5.5); LYMPHOCYTES % (AUTO) 15.8 % (20.5-51.5); MEAN CORPUSCULAR HEMOGLOBIN 28 pg (27-31); MEAN CORPUSCULAR HGB CONC 33 % (32-36); MEAN CORPUSCULAR VOLUME 86 fL (79.0-98.0); MONOCYTES # (AUTO) 0.3 K/uL (0.0-1.0); MONOCYTES % (AUTO) 3.5 % (1.7-9.3); NEUTROPHILS # (AUTO) 6.9 K/uL (1.8-7.7); NEUTROPHILS % (AUTO) 80.2 % (40.0-70.0); PLATELET COUNT (AUTO) 351 K/uL (130-430); RED BLOOD CELL COUNT(AUTO) 4.21 MIL/uL (4.2-6.2); RED CELL DISTRIBUTION WIDTH 14.5 % (9.0-15.0); WHITE BLOOD COUNT (AUTO) 8.6 K/uL (4.8-10.8)
[2023-07-26] MEDS: NORMAL SALINE 5 ML DISP.SYRIN IVF SCH ×3 (07:01→21:13)
[2023-07-26] MEDS: LEVOTHYROXINE SODIUM 0.025 MG TABLET PO SCH (07:18)
[2023-07-26 07:42] LABS: ALANINE AMINOTRANSFERASE 8 U/L (12-78); ANION GAP 10 (5-15); ASPARTATE AMINOTRANSFERASE 10 U/L (10-37); CALCIUM 9.2 mg/dL (8.4-11.0); CARBON DIOXIDE 24 mmol/L (23-29); CHLORIDE 101 mmol/L (98-107); CREATININE 0.88 mg/dL (0.55-1.30); GLUCOSE 144 mg/dL (74-106); SODIUM SERUM 135 mmol/L (136-145); TOTAL BILIRUBIN 0.2 mg/dL (0.0-1.0); TOTAL PROTEIN, SERUM 7.3 g/dL (6.4-8.3); UREA NITROGEN, BLOOD 25 mg/dL (8-21)
[2023-07-26 07:56] LABS: ERYTHROCYTE SEDIMENTATION RATE 66 MM/HR (0-20)
[2023-07-26] MEDS: APIXABAN 2.5 MG TABLET PO SCH (09:00)
[2023-07-26] MEDS: LOSARTAN POTASSIUM 50 MG TABLET (COZAAR) PO SCH (09:24)
[2023-07-26] MEDS: amLODIPine BESYLATE 10 MG TABLET PO SCH (09:26)
[2023-07-26] MEDS: METOCLOPRAMIDE HCL 10 MG TABLET PO SCH (09:26)
[2023-07-26] MEDS: PANTOPRAZOLE SODIUM 40 MG TAB PO SCH (09:26)
[2023-07-26] MEDS: METHYLPREDNISOLONE SOD SUCC 40 MG/ML VIAL IVP SCH ×2 (09:28→21:00)
[2023-07-26] MEDS: SIMVASTATIN 20 MG TABLET PO SCH (21:12)
[2023-07-27] VITALS (11 sets, daily range): BP systolic 82–128; PULSE 57–79; RESP 14–18; TEMP 97–98.4; O2SAT 93–100
[2023-07-27] MEDS: IPRATROPIUM BROM 0.5 MG/2.5 ML VIAL.NEB (ATROVENT) INH SCH ×5 (03:00→21:05)
[2023-07-27] MEDS: ALBUTEROL SULFATE 0.083% 2.5 MG/3 ML VIAL.NEB INH SCH ×5 (03:00→21:05)
[2023-07-27] MEDS: NORMAL SALINE 5 ML DISP.SYRIN IVF SCH ×3 (05:44→20:25)
[2023-07-27] MEDS: LEVOTHYROXINE SODIUM 0.025 MG TABLET PO SCH (08:11)
[2023-07-27] MEDS: amLODIPine BESYLATE 10 MG TABLET PO SCH (09:16)
[2023-07-27] MEDS: METOCLOPRAMIDE HCL 10 MG TABLET PO SCH (09:16)
[2023-07-27] MEDS: PANTOPRAZOLE SODIUM 40 MG TAB PO SCH (09:18)
[2023-07-27] MEDS: LOSARTAN POTASSIUM 50 MG TABLET (COZAAR) PO SCH (09:19)
[2023-07-27] MEDS: APIXABAN 2.5 MG TABLET PO SCH (09:21)
[2023-07-27] MEDS: METHYLPREDNISOLONE SOD SUCC 40 MG/ML VIAL IVP SCH ×2 (13:59→20:25)
[2023-07-27] MEDS: SIMVASTATIN 20 MG TABLET PO SCH (20:25)
[2023-07-28] VITALS (11 sets, daily range): BP systolic 95–127; PULSE 59–83; RESP 16–19; TEMP 97.6–98.4; O2SAT 91–99
[2023-07-28] MEDS: ALBUTEROL SULFATE 0.083% 2.5 MG/3 ML VIAL.NEB INH SCH ×7 (00:36→23:30)
[2023-07-28] MEDS: IPRATROPIUM BROM 0.5 MG/2.5 ML VIAL.NEB (ATROVENT) INH SCH ×7 (00:36→23:30)
[2023-07-28 05:51] LABS: BASOPHILS % (AUTO) 0.4 % (0.0-2.0); HEMATOCRIT 39.6 % (36-48); LYMPHOCYTES # (AUTO) 1.5 K/uL (1.0-5.5); LYMPHOCYTES % (AUTO) 16.7 % (20.5-51.5); MEAN CORPUSCULAR HEMOGLOBIN 28 pg (27-31); MEAN CORPUSCULAR HGB CONC 33 % (32-36); MEAN CORPUSCULAR VOLUME 86 fL (79.0-98.0); MONOCYTES # (AUTO) 0.3 K/uL (0.0-1.0); NEUTROPHILS # (AUTO) 7.2 K/uL (1.8-7.7); NEUTROPHILS % (AUTO) 79.9 % (40.0-70.0); PLATELET COUNT (AUTO) 379 K/uL (130-430); RED BLOOD CELL COUNT(AUTO) 4.63 MIL/uL (4.2-6.2); RED CELL DISTRIBUTION WIDTH 14.2 % (9.0-15.0)
[2023-07-28 05:55] LABS: ANION GAP 11 (5-15); CALCIUM 9.1 mg/dL (8.4-11.0); CARBON DIOXIDE 24 mmol/L (23-29); CHLORIDE 101 mmol/L (98-107); CREATININE 0.87 mg/dL (0.55-1.30); GLUCOSE 158 mg/dL (74-106); POTASSIUM 4.4 mmol/L (3.5-5.1); SODIUM SERUM 136 mmol/L (136-145); UREA NITROGEN, BLOOD 28 mg/dL (8-21)
[2023-07-28 06:44] LABS: ERYTHROCYTE SEDIMENTATION RATE 64 MM/HR (0-20)
[2023-07-28] MEDS: LEVOTHYROXINE SODIUM 0.025 MG TABLET PO SCH (07:00)
[2023-07-28] MEDS: NORMAL SALINE 5 ML DISP.SYRIN IVF SCH ×3 (07:01→21:07)
[2023-07-28] MEDS ORDERED: SODIUM CL 3% FOR INHALATION 15 ML VIAL.NEB INH ONE ×2 (07:56→08:00)
[2023-07-28] MEDS: LOSARTAN POTASSIUM 50 MG TABLET (COZAAR) PO SCH (09:02)
[2023-07-28] MEDS: METHYLPREDNISOLONE SOD SUCC 40 MG/ML VIAL IVP SCH ×2 (09:02→21:07)
[2023-07-28] MEDS: amLODIPine BESYLATE 10 MG TABLET PO SCH (09:03)
[2023-07-28] MEDS: METOCLOPRAMIDE HCL 10 MG TABLET PO SCH (09:03)
[2023-07-28] MEDS: PANTOPRAZOLE SODIUM 40 MG TAB PO SCH (09:03)
[2023-07-28] MEDS: APIXABAN 2.5 MG TABLET PO SCH (09:06)
[2023-07-28] MEDS: SIMVASTATIN 20 MG TABLET PO SCH (21:07)
[2023-07-29] VITALS (9 sets, daily range): BP systolic 111–137; PULSE 58–62; RESP 16–18; TEMP 97.5–98.1; O2SAT 94–97
[2023-07-29] MEDS: IPRATROPIUM BROM 0.5 MG/2.5 ML VIAL.NEB (ATROVENT) INH SCH ×5 (03:00→23:41)
[2023-07-29] MEDS: ALBUTEROL SULFATE 0.083% 2.5 MG/3 ML VIAL.NEB INH SCH ×4 (03:00→23:41)
[2023-07-29 05:44] LABS: ERYTHROCYTE SEDIMENTATION RATE 24 MM/HR (0-20)
[2023-07-29 05:55] LABS: BASOPHILS % (AUTO) 0.3 % (0.0-2.0); HEMATOCRIT 37.9 % (36-48); HEMOGLOBIN 12.5 g/dL (12.0-16.0); LYMPHOCYTES # (AUTO) 1.6 K/uL (1.0-5.5); LYMPHOCYTES % (AUTO) 15.6 % (20.5-51.5); MEAN CORPUSCULAR HEMOGLOBIN 28 pg (27-31); MEAN CORPUSCULAR HGB CONC 33 % (32-36); MEAN CORPUSCULAR VOLUME 86 fL (79.0-98.0); MONOCYTES # (AUTO) 0.4 K/uL (0.0-1.0); MONOCYTES % (AUTO) 3.8 % (1.7-9.3); NEUTROPHILS # (AUTO) 8.2 K/uL (1.8-7.7); NEUTROPHILS % (AUTO) 80.3 % (40.0-70.0); PLATELET COUNT (AUTO) 415 K/uL (130-430); RED BLOOD CELL COUNT(AUTO) 4.43 MIL/uL (4.2-6.2); RED CELL DISTRIBUTION WIDTH 14.1 % (9.0-15.0); WHITE BLOOD COUNT (AUTO) 10.2 K/uL (4.8-10.8)
[2023-07-29] MEDS: LEVOTHYROXINE SODIUM 0.025 MG TABLET PO SCH (06:38)
[2023-07-29] MEDS: NORMAL SALINE 5 ML DISP.SYRIN IVF SCH ×3 (06:38→21:14)
[2023-07-29 06:40] LABS: ALANINE AMINOTRANSFERASE 12 U/L (12-78); ALBUMIN 2.8 g/dL (3.4-4.8); ANION GAP 11 (5-15); ASPARTATE AMINOTRANSFERASE 7 U/L (10-37); CALCIUM 8.7 mg/dL (8.4-11.0); CARBON DIOXIDE 25 mmol/L (23-29); CHLORIDE 101 mmol/L (98-107); CREATININE 0.83 mg/dL (0.55-1.30); GLUCOSE 159 mg/dL (74-106); PHOSPHORUS 3.2 mg/dL (2.7-4.5); POTASSIUM 4.3 mmol/L (3.5-5.1); SODIUM SERUM 137 mmol/L (136-145); TOTAL BILIRUBIN 0.2 mg/dL (0.0-1.0); TOTAL PROTEIN, SERUM 6.6 g/dL (6.4-8.3); UREA NITROGEN, BLOOD 32 mg/dL (8-21)
[2023-07-29] MEDS ORDERED: SODIUM CL 3% FOR INHALATION 15 ML VIAL.NEB INH ONE (08:35)
[2023-07-29] MEDS: METOCLOPRAMIDE HCL 10 MG TABLET PO SCH (09:48)
[2023-07-29] MEDS: PANTOPRAZOLE SODIUM 40 MG TAB PO SCH (09:48)
[2023-07-29] MEDS: APIXABAN 2.5 MG TABLET PO SCH (09:49)
[2023-07-29] MEDS: METHYLPREDNISOLONE SOD SUCC 40 MG/ML VIAL IVP SCH ×2 (09:50→22:22)
[2023-07-29] MEDS: LOSARTAN POTASSIUM 50 MG TABLET (COZAAR) PO SCH (09:52)
[2023-07-29] MEDS: amLODIPine BESYLATE 10 MG TABLET PO SCH (09:53)
[2023-07-29 18:07] LABS: QUANTIFERON TB GOLD Negative (Negative)
[2023-07-29] MEDS: SIMVASTATIN 20 MG TABLET PO SCH (21:13)
[2023-07-30] VITALS (11 sets, daily range): BP systolic 104–146; PULSE 58–76; RESP 17–19; TEMP 97.5–98.4; O2SAT 94–98
[2023-07-30] MEDS: IPRATROPIUM BROM 0.5 MG/2.5 ML VIAL.NEB (ATROVENT) INH SCH ×6 (03:00→23:55)
[2023-07-30] MEDS: ALBUTEROL SULFATE 0.083% 2.5 MG/3 ML VIAL.NEB INH SCH ×6 (03:00→23:55)
[2023-07-30] MEDS: LEVOTHYROXINE SODIUM 0.025 MG TABLET PO SCH (06:07)
[2023-07-30] MEDS: NORMAL SALINE 5 ML DISP.SYRIN IVF SCH ×3 (06:07→21:32)
[2023-07-30] MEDS: PANTOPRAZOLE SODIUM 40 MG TAB PO SCH (09:11)
[2023-07-30] MEDS: LOSARTAN POTASSIUM 50 MG TABLET (COZAAR) PO SCH (09:12)
[2023-07-30] MEDS: amLODIPine BESYLATE 10 MG TABLET PO SCH (09:13)
[2023-07-30] MEDS: METOCLOPRAMIDE HCL 10 MG TABLET PO SCH (09:14)
[2023-07-30] MEDS: METHYLPREDNISOLONE SOD SUCC 40 MG/ML VIAL IVP SCH ×2 (09:14→21:32)
[2023-07-30] MEDS: APIXABAN 2.5 MG TABLET PO SCH (09:16)
[2023-07-30 13:07] LABS: QUANTIFERON TB GOLD Negative (Negative)
[2023-07-30] MEDS: SIMVASTATIN 20 MG TABLET PO SCH (21:32)
[2023-07-31] VITALS (7 sets, daily range): BP systolic 109–125; PULSE 54–63; RESP 17–18; TEMP 97.5–98.4; O2SAT 93–96
[2023-07-31] MEDS: IPRATROPIUM BROM 0.5 MG/2.5 ML VIAL.NEB (ATROVENT) INH SCH ×3 (03:00→11:27)
[2023-07-31] MEDS: ALBUTEROL SULFATE 0.083% 2.5 MG/3 ML VIAL.NEB INH SCH ×3 (03:00→11:27)
[2023-07-31 06:59] LABS: BASOPHILS % (AUTO) 0.2 % (0.0-2.0); EOSINOPHILS % (AUTO) 0.1 % (0.0-4.0); HEMATOCRIT 40.3 % (36-48); LYMPHOCYTES # (AUTO) 2.1 K/uL (1.0-5.5); LYMPHOCYTES % (AUTO) 18.2 % (20.5-51.5); MEAN CORPUSCULAR HEMOGLOBIN 28 pg (27-31); MEAN CORPUSCULAR HGB CONC 32 % (32-36); MEAN CORPUSCULAR VOLUME 85 fL (79.0-98.0); MONOCYTES # (AUTO) 0.3 K/uL (0.0-1.0); MONOCYTES % (AUTO) 2.3 % (1.7-9.3); NEUTROPHILS # (AUTO) 9.3 K/uL (1.8-7.7); NEUTROPHILS % (AUTO) 79.2 % (40.0-70.0); PLATELET COUNT (AUTO) 401 K/uL (130-430); RED BLOOD CELL COUNT(AUTO) 4.73 MIL/uL (4.2-6.2); WHITE BLOOD COUNT (AUTO) 11.8 K/uL (4.8-10.8)
[2023-07-31 07:17] LABS: ALANINE AMINOTRANSFERASE 11 U/L (12-78); ANION GAP 6 (5-15); ASPARTATE AMINOTRANSFERASE 8 U/L (10-37); CALCIUM 8.7 mg/dL (8.4-11.0); CARBON DIOXIDE 29 mmol/L (23-29); CHLORIDE 99 mmol/L (98-107); CREATININE 0.84 mg/dL (0.55-1.30); GLUCOSE 153 mg/dL (74-106); SODIUM SERUM 134 mmol/L (136-145); TOTAL BILIRUBIN 0.2 mg/dL (0.0-1.0); TOTAL PROTEIN, SERUM 6.3 g/dL (6.4-8.3); UREA NITROGEN, BLOOD 26 mg/dL (8-21)
[2023-07-31 07:27] LABS: ERYTHROCYTE SEDIMENTATION RATE 29 MM/HR (0-20)
[2023-07-31] MEDS: PANTOPRAZOLE SODIUM 40 MG TAB PO SCH (09:23)
[2023-07-31] MEDS: METOCLOPRAMIDE HCL 10 MG TABLET PO SCH (09:24)
[2023-07-31] MEDS: LEVOTHYROXINE SODIUM 0.025 MG TABLET PO SCH (09:24)
[2023-07-31] MEDS: LOSARTAN POTASSIUM 50 MG TABLET (COZAAR) PO SCH (09:30)
[2023-07-31] MEDS: amLODIPine BESYLATE 10 MG TABLET PO SCH (09:30)
[2023-07-31] MEDS: APIXABAN 2.5 MG TABLET PO SCH (09:34)
[2023-07-31] MEDS: METHYLPREDNISOLONE SOD SUCC 40 MG/ML VIAL IVP SCH (10:26)
[2023-07-31] MEDS: NORMAL SALINE 5 ML DISP.SYRIN IVF SCH ×2 (10:27→14:00)
[2023-07-31] MEDS ORDERED: ALBUTEROL SULFATE 0.083% 2.5 MG/3 ML VIAL.NEB INH PRN (13:15)
[2023-07-31] MEDS ORDERED: LEVO-62 PO (18:35)
[2023-08-01 23:06] LABS: COCCIDIOIDES AB IGG 1.1 IV (<=0.9)
== END 2023-07-31 18:51 | disposition home or self-care (01) | DRG 193 ==
LOC: SED 18:08 → STU 21:27 → SMU 07-26 15:01
PROVIDERS: ADMIT Preventive Medicine Preventive Medicine/Occupational Environmental Medicine; ATTEND Preventive Medicine Preventive Medicine/Occupational Environmental Medicine
DX: J18.9 Pneumonia, unspecified organism (principal); J96.01 Acute respiratory failure with hypoxia; J44.1 Chronic obstructive pulmonary disease with (acute) exacerbation; E87.1 Hypo-osmolality and hyponatremia; J44.0 Chronic obstructive pulmonary disease with (acute) lower respiratory infection; K21.9 Gastro-esophageal reflux disease without esophagitis; I10 Essential (primary) hypertension; E78.5 Hyperlipidemia, unspecified; E03.9 Hypothyroidism, unspecified; R73.9 Hyperglycemia, unspecified; J98.4 Other disorders of lung; E88.09 Other disorders of plasma-protein metabolism, not elsewhere classified; Z78.9 Other specified health status; Z79.01 Long term (current) use of anticoagulants; Z87.891 Personal history of nicotine dependence; Z79.899 Other long term (current) drug therapy
CPT/HCPCS: 36415; 71045; 71275; 76376; 80048; 80053; 83605; 83735; 84100; 84484; 85025; 85379; 85610-TC; 85651-TC; 85730-TC; 86480; 86635; 87040; 87116; 93005; 94640; 94760; 96365; 99285; G0378; J1030; J1956; J7131; J8597; Q9967

== ENCOUNTER 2023-11-27 10:10 | Outpatient (CLI) | payer OTHER, MEDICAID ==
[~2023-11-27 10:10] MED LIST changes: +LEVO-62 PO; +LOSA-413 PO; +SIMV-343 PO
== END 2023-11-27 18:30 | disposition home or self-care (01) ==
LOC: SCT 10:10
PROVIDERS: ATTEND Internal Medicine Infectious Disease
DX: K80.20 Calculus of gallbladder without cholecystitis without obstruction (principal); K57.30 Diverticulosis of large intestine without perforation or abscess without bleeding; N20.0 Calculus of kidney; I25.10 Atherosclerotic heart disease of native coronary artery without angina pectoris; I70.0 Atherosclerosis of aorta; R10.9 Unspecified abdominal pain; J18.9 Pneumonia, unspecified organism
CPT/HCPCS: 71250-TC; 76376

== ENCOUNTER 2024-03-18 09:58 | Outpatient (CLI) | payer OTHER, MEDICAID | END 2024-03-18 20:58 | disposition home or self-care (01) | LOC: SMA 09:58 | PROVIDERS: ATTEND Nurse Practitioner | DX: Z12.31 Encounter for screening mammogram for malignant neoplasm of breast (principal) | CPT/HCPCS: 77066; 77067 ==

== ENCOUNTER 2024-08-14 11:07 | Outpatient (CLI) | payer OTHER, MEDICAID | END 2024-08-14 19:10 | disposition home or self-care (01) | LOC: SRD 11:07 | PROVIDERS: ATTEND Internal Medicine Infectious Disease | DX: R05.9 Cough, unspecified (principal) | CPT/HCPCS: 71046 ==